=== PATIENT | female | born 1935 | race Caucasian/White ===

== ENCOUNTER → 2020-11-16 10:58 | Outpatient (BNVA) | payer OTHER, MEDICARE, SELFPAY | PROVIDERS: Family Provider Nurse Practitioner Family; PCP Nurse Practitioner Family; Visit Provider Nurse Practitioner Family | DX: R05 Cough (principal); R50.9 Fever, unspecified; Z20.822 Contact with and (suspected) exposure to COVID-19 | CPT/HCPCS: 87635 ==

== ENCOUNTER → 2021-03-19 10:53 | Outpatient (BNVA) | payer MEDICARE, SELFPAY | PROVIDERS: Family Provider Nurse Practitioner Family; PCP Nurse Practitioner Family; Visit Provider Nurse Practitioner Family | DX: I10 Essential (primary) hypertension (principal) | CPT/HCPCS: 80048 ==

== ENCOUNTER → 2021-04-30 00:01 | Outpatient (BNVA) | payer OTHER, MEDICAID, SELFPAY | PROVIDERS: Family Provider Nurse Practitioner Family; PCP Nurse Practitioner Family; Visit Provider Nurse Practitioner Family | DX: I10 Essential (primary) hypertension (principal); E55.9 Vitamin D deficiency, unspecified | CPT/HCPCS: 80061; 82306 ==

== ENCOUNTER → 2021-06-12 09:54 | Outpatient (BNVA) | payer OTHER, MEDICAID, SELFPAY | PROVIDERS: Family Provider Nurse Practitioner Family; PCP Nurse Practitioner Family; Visit Provider Nurse Practitioner Family | DX: E55.9 Vitamin D deficiency, unspecified (principal); I10 Essential (primary) hypertension | CPT/HCPCS: 80048; 80061; 82306 ==

== ENCOUNTER → 2021-10-05 08:27 | Outpatient (BNVA) | payer OTHER, MEDICAID, SELFPAY | PROVIDERS: Family Provider Nurse Practitioner Family; PCP Nurse Practitioner Family; Visit Provider Nurse Practitioner Family | DX: E55.9 Vitamin D deficiency, unspecified (principal); I10 Essential (primary) hypertension | CPT/HCPCS: 80061; 82306 ==

== ENCOUNTER → 2021-11-21 13:26 | Outpatient (BNVA) | payer OTHER, MEDICAID, SELFPAY | PROVIDERS: Family Provider Nurse Practitioner Family; PCP Nurse Practitioner Family; Visit Provider Nurse Practitioner Family | DX: R50.9 Fever, unspecified (principal); U07.1 COVID-19 | CPT/HCPCS: 87426 ==

== ENCOUNTER → 2022-03-04 08:51 | Outpatient (BNVA) | payer OTHER, MEDICAID, SELFPAY | PROVIDERS: Family Provider Nurse Practitioner Family; PCP Nurse Practitioner Family; Visit Provider Nurse Practitioner Family | DX: I10 Essential (primary) hypertension (principal); E78.5 Hyperlipidemia, unspecified | CPT/HCPCS: 80053; 80061 ==

== ENCOUNTER 2022-04-26 11:27 | Emergency (ER) | payer MEDICARE, SELFPAY ==
[2022-04-26 11:35] VITALS: BP 174/46; PULSE 84; RESP 18; TEMP 36.7; O2SAT 96
--- NOTE | 2022-04-26 11:48 | ED_ITS ---
HPI - Wound/Laceration General: Chief Complaint: Fall Stated Complaint: FALL Time Seen by Provider: 04/26/22 11:41 Source: patient Mode of arrival: EMS Limitations: no limitations History of Present Illness: Patient is a nice 86-year-old female who presents to ED today for evaluation of a right lower leg laceration that she sustained after tripping and falling prior to arrival and catching the leg on a portion of her cat litter box. She has no other complaints other than the laceration to her leg. She is ambulatory on the extremity and does not seem to have any bony tenderness. She denies any other injury sustained during the fall. Last tetanus is unknown. Patient is not on anticoagulation. Onset (ago): hour(s) Extremity Location: Right: lower leg Place: home Patient tetanus UTD: No Context: accidental Associated symptoms: Reports no associated symptoms Treatments prior to arrival: bandage Review of Systems Musc: Denies: neck pain, back pain, extremity pain or joint pain Skin/Breast: Reports: other (R lower leg laceration) Neuro: Denies: numbness in extremities, sensory changes or difficulty walking [facility] ED PFSH: Medical History Heart murmur Hyperlipidemia Hypertension Vitamin D deficiency Surgical History History of appendectomy History of bowel resection History of cholecystectomy History of eye surgery History of hysterectomy Family History Mother Cancer breast Father Hypertension CAD (coronary artery disease) Denies family history of Diabetes Hyperlipidemia Lung disease Stroke Social History Smoking and tobacco status: former smoker Quit status (tobacco): quit date established Alcohol intake: current Alcohol intake frequency: holidays/special occasions only Adopted: No Caregiver/support person: No Lives independently: Yes Household members: none Housing: Apartment Current occupational status: retired Pets and animals: Yes Pets & animals: cat(s) History of recent travel: Yes Out of state: No Out of country: No Sexually active: No Current gender identity: Female Physical Exam Const: COMMON NORMALS: no acute distress, patient oriented x3, no limitations, alert and well nourished GENERAL APPEARANCE: cooperative HENMT: COMMON NORMALS: normocephalic and atraumatic HEAD & SCALP: normal to inspection, normocephalic and atraumatic Neck/C-Spine: COMMON NORMALS: full ROM CERVICAL SPINE: No Cervical spine tenderness Back/Pelvis: COMMON NORMALS: thoracic and lumbar spine normal to inspection, no thoracic nor lumbar tenderness and thoraco-lumbar ROM normal Extremity: COMMON NORMALS: full ROM and capillary refill normal GENERAL: Yes normal exam except as noted RIGHT LOWER EXTREMITY: Yes lower leg OTHER: pt has a large laceration to her anterior R lower leg; laceration consists of a large skin tear but there is a centrally located deeper portion that has stripped the adipose tissue from muscle fascia; fascia still intact; NV intact Neuro: COMMON NORMALS: patient oriented x3, moves all extremities, no focal motor deficits and no sensory deficits noted SENSORIUM/ORIENTATION: Yes alert Skin: NARRATIVE SKIN EXAM: R lower leg laceration Procedures Laceration Laceration 1: Site: lower extremity Side (If applicable): right Size (cm): 10 Description: flap and irregular Depth: simple, single layer Local Anesthetic: lidocaine 1% and with epi Amount of anesthesia used (mL): 7.0 Pre-repair: wound explored and irrigated extensively Subcutaneous layer closed with: vicryl Size: 4-0 and 5-0 Number of sutures: 13 Technique: simple, interrupted and running Course Vital Signs: Vital signs: Vital Signs Temperature 98.1 F 04/26/22 11:35 Pulse Rate 84 04/26/22 11:35 Respiratory Rate 18 04/26/22 11:35 Blood Pressure 174/46 04/26/22 11:35 Pulse Oximetry 96 04/26/22 11:35 Oxygen Delivery Me thod 04/26/22 11:35 MDM - Wound/Laceration Medical Decision Making Subcutaneous adipose tissue was sutured/approximated as best as possible. Her overlying skin is/was too thin to hold a stitch and appeared as a large skin tear so this was then gently laid over deeper wound and will be held with Steri- Strips. Recommend elevation to help with swelling. She will be placed on antibiotics as wound was sustained after cutting it on a cat litter box and I would be concerned for feline fecal material even though wound was copiously irrigated. Tetanus updated. Recommend she follow-up with primary care next week. Discharge Plan Discharge Patient Disposition: Home Clinical Impression: Laceration of lower leg, right Qualifiers: Encounter type: initial encounter Qualified Code(s): S81.811A - Laceration without foreign body, right lower leg, initial encounter Condition: Stable Prescriptions: New cephalexin 500 mg capsule 500 mg PO Q6H 7 Days Qty: 28 0RF No Action omega-3 fatty acids [Fish Oil Concentrate] 1,000 mg capsule 2,000 mg PO DAILY multivitamin [Multiple Vitamins] Tablet 1 tab PO DAILY cholecalciferol (vitamin D3) 50 mcg (2,000 unit) capsule 50 mcg PO DAILY Hold Instructions: Dose Change lycopene 10 mg capsule 10 mg PO DAILY Rx Instructions: administer after a meal cholecalciferol (vitamin D3) 1,250 mcg (50,000 unit) capsule 50,000 unit PO .weekly Qty: 4 0RF (DME) homemaker/personal care See Rx Instructions .Route .MEDSUPPLY Qty: 1 0RF Rx Instructions: 2x weekly zinc 50 mg capsule 50 mg PO DAILY ezetimibe 10 mg tablet 10 mg PO DAILY Qty: 30 0RF lisinopril 20 mg tablet See Rx Instructions .ROUTE .COMPLEX Qty: 90 0RF Dose Instruction: TAKE 1 TABLET EVERY DAY Rx Instructions: TAKE 1 TABLET EVERY DAY Discharge Orders: Discharge ED (Routine); Ordered 04/26/22 Ordered By: Tory Batista Referrals: Noemi Salvador FNP [Primary Care Provider] - Patient Instructions: Care For Your Stitches (DC), Laceration (DC), Care For Your Absorbable Stitches (ED) Activity Restrictions/Additional Instructions: Keep wound/laceration clean with warm soap and water twice daily. Monitor for signs of infection such as redness, swelling, increased pain, or drainage. Please seek medical re-evaluation if these occur. Your sutures are absorbable and do not need to be removed. If your wound was closed with Steri-Strips or glue/adhesive these will fall off within the next week or so. Please elevate extremity to help with swelling. Follow up with primary care next week for re- evaluation. Coding Level of Care Code ED Client Delivery Specialist for [facility] Fwd Exam Detailed
[2022-04-26] MEDS: tetanus-diphtheria tox (adult) 0.5 mL SDV IM (12:02)
[2022-04-26 13:31] VITALS: BP 133/82; PULSE 77; RESP 16; O2SAT 96
== END 2022-04-26 13:33 | disposition home or self-care (01) ==
PROVIDERS: Emergency Provider Physician Assistant; PCP Nurse Practitioner Family
DX: S81.811A Laceration without foreign body, right lower leg, initial encounter (principal); Z87.891 Personal history of nicotine dependence; E78.5 Hyperlipidemia, unspecified; I10 Essential (primary) hypertension; W26.8XXA Contact with other sharp object(s), not elsewhere classified, initial encounter; Z23 Encounter for immunization
CPT/HCPCS: 12034; 90471; 90714; 99283

== ENCOUNTER → 2022-07-17 09:07 | Outpatient (BNVA) | payer MEDICARE, MEDICAID, SELFPAY | PROVIDERS: PCP Nurse Practitioner Family; Visit Provider Nurse Practitioner Family | DX: E78.5 Hyperlipidemia, unspecified (principal); I10 Essential (primary) hypertension; E55.9 Vitamin D deficiency, unspecified | CPT/HCPCS: 80053; 80061; 82652 ==

== ENCOUNTER → 2023-09-03 11:16 | Outpatient (BNVA) | payer MEDICARE, MEDICAID, SELFPAY | PROVIDERS: PCP Nurse Practitioner Family; Visit Provider Nurse Practitioner Family | DX: I10 Essential (primary) hypertension (principal); R53.83 Other fatigue; E55.9 Vitamin D deficiency, unspecified; E78.2 Mixed hyperlipidemia; Z79.899 Other long term (current) drug therapy | CPT/HCPCS: 80053; 80061; 82306; 85025 ==

== ENCOUNTER → 2024-04-05 11:20 | Outpatient (BNVA) | payer MEDICARE, MEDICAID, SELFPAY | PROVIDERS: PCP Nurse Practitioner Family; Visit Provider Nurse Practitioner Family | DX: I10 Essential (primary) hypertension (principal); E55.9 Vitamin D deficiency, unspecified; R53.83 Other fatigue | CPT/HCPCS: 80053; 80061; 82306; 84443; 85025 ==

== ENCOUNTER → 2024-07-12 11:28 | Outpatient (BNVA) | payer MEDICARE, MEDICAID, SELFPAY | PROVIDERS: PCP Nurse Practitioner Family; Visit Provider Nurse Practitioner Family | DX: I10 Essential (primary) hypertension (principal) | CPT/HCPCS: 80053; 80061 ==

== ENCOUNTER → 2024-10-26 11:33 | Outpatient (BNVA) | payer MEDICARE, MEDICAID, SELFPAY | PROVIDERS: PCP Nurse Practitioner Family; Visit Provider Nurse Practitioner Family | DX: I10 Essential (primary) hypertension (principal); E55.9 Vitamin D deficiency, unspecified | CPT/HCPCS: 80053; 80061; 82306 ==